=== PATIENT | female | born 1955 | race Caucasian/White ===

== ENCOUNTER → 2017-09-07 | Outpatient (CLI) | payer OTHER ==
[~2017-09-07] VITALS: Ht 162.6 cm; Wt 71.2 kg
[~2017-09-07] MED LIST: FLONASE 0.05%50 MCG NASAL; PREMPRO 0.45-11 EACH PO; TERBINAFINE HC250 MG PO; ZYRTEC 10 MG TA10 M1 PO
--- NOTE | ~2017-09-07 | HC ---
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 HISTORY OF PRESENT ILLNESS: The patient is a 62-year-old white woman referred by Dr. Trena Bowman with a history of lesion on the right thumb that has been getting worse and has failed to improve despite treatment with terbinafine 250 mg daily that has been prescribed to her initially on 08/03/2017, after an initial prescription for itraconazole 200 mg b.i.d., it was deemed to be too expensive for treatment of her condition. Anyhow, the lesion has been ongoing since the fall of the year 2016, when she initially suffered a puncture by a thorn of a jake esposito. From there on, she went on developing an ulceration on the thumb and from there on, the lesion has grown to rather friable lesion on the ventral aspect of the right thumb. The patient never went on developing satellite lesions, consequently this makes it unlikely to be in nature. SOCIAL HISTORY: The patient is single. Denies using tobacco. Drinks some wine. 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 PAST MEDICAL HISTORY: She was diagnosed to have a thyroglossal cyst many years ago, which was treated at [facility]. She did have a rotator cuff surgery on the left shoulder by Dr. Wilmer Frye a few years ago. REVIEW OF SYSTEMS: Noncontributory. PHYSICAL EXAMINATION: GENERAL: This is a well-developed woman, not toxic looking with following vital signs. VITAL SIGNS: Height 5 feet 4 inches, weight 257 pounds, temperature 98.3, pulse 74, respirations 12, and BP 132/83. HEENT: She does have a left eye implant and she forgot to mention this to me. MOUTH: Good oral hygiene dentition. NECK: Supple. No thyromegaly or lymphadenopathy. LYMPH NODE: Negative. LUNGS: Clear to auscultation. HEART: S1, S2. No gallop or murmur. ABDOMEN: Soft, no masses or megaly. PELVIC AND RECTAL: Deferred. [facility] [address] [place] [address] CONSULTATION Name: MALLORIE SEALS Room #: [facility].#: [id number] Admission: 09/07/17 Attend Phys: Servando Henriquez Discharge: Date of : 57 Report #: [id number] EXTREMITIES: No clubbing or cyanosis. On the ventral aspect of the right thumb, there is a typical lesion of a pyogenic granuloma. enough that possibly surgical resection will be the most expeditious treatment. ASSESSMENT: 1. Pyogenic granuloma, right thumb. 2. History of surgery for thyroglossal cyst. 3. Status post left lens implant, cataract surgery. 4. History of left rotator cuff surgery. SUGGESTIONS: Discussed the patient's situation with Dr. Trena Bowman and recommended referral to hand surgeon, Dr. Patti Kay for surgical resection of pyogenic granuloma right thumb. We will proceed with path report as well during surgical intervention. Gave information to Dr. Kay's office and the patient's telephone number, they will contact her. Left my cell phone number with Dr. Kay's office to have her give me a call prior to office visit. The patient will stop terbinafine since these have not done any good for the patient. Dr. Trena Bowman, thank you very much for requesting my suggestions in the care of your patient. <ELECTRONICALLY SIGNED> By: Servando Easton MD 09/08/17 [id number] Servando Easton MD /nt
[2017-09-07 10:26] VITALS: BP 132/83
== END ==
LOC: SEN 10:08
DX: L98.0 Pyogenic granuloma (principal)